=== PATIENT | female | born 2000 | race Caucasian/White ===

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

== ENCOUNTER → 2021-02-04 | Outpatient (CLI) | payer OTHER ==
[2021-02-05 08:08] LABS: TOXOPLASMA GONDII IGM <3.0 AU/mL (0.0-7.9)
== END | disposition home or self-care (01) ==
LOC: US 11:00 → LAB 11:20 → US 11:20
PROVIDERS: ATTEND Nurse Practitioner Women's Health
DX: O26.892 Other specified pregnancy related conditions, second trimester (principal); Z3A.14 14 weeks gestation of pregnancy; Z62.810 Personal history of physical and sexual abuse in childhood

== ENCOUNTER → 2021-03-14 | Outpatient (CLI) | payer OTHER | END | disposition home or self-care (01) | LOC: US 10:25 | PROVIDERS: ATTEND Obstetrics & Gynecology | DX: Z34.02 Encounter for supervision of normal first pregnancy, second trimester (principal); Z3A.19 19 weeks gestation of pregnancy ==

== ENCOUNTER → 2021-04-08 | Outpatient (CLI) | payer OTHER | END | disposition home or self-care (01) | LOC: US 10:44 | PROVIDERS: ATTEND Obstetrics & Gynecology | DX: Z34.02 Encounter for supervision of normal first pregnancy, second trimester (principal); Z3A.23 23 weeks gestation of pregnancy ==

== ENCOUNTER → 2021-05-10 | Outpatient (CLI) | payer OTHER | END | disposition home or self-care (01) | LOC: US 15:29 | PROVIDERS: ATTEND Nurse Practitioner Women's Health | DX: Z34.03 Encounter for supervision of normal first pregnancy, third trimester (principal); Z3A.28 28 weeks gestation of pregnancy ==

== ENCOUNTER 2023-02-20 16:12 | Emergency (ER) | payer OTHER ==
[~2023-02-20] VITALS: Ht 165.1 cm; Wt 58.1 kg
[2023-02-20] MEDS ORDERED: VIBRAMYCIN100 MG PO ×2 (17:01→17:03)
== END 2023-02-20 17:20 | disposition home or self-care (01) ==
LOC: ED 16:12
DX: S80.862A Insect bite (nonvenomous), left lower leg, initial encounter (principal); W57.XXXA Bitten or stung by nonvenomous insect and other nonvenomous arthropods, initial encounter; Y93.89 Activity, other specified; Y92.89 Other specified places as the place of occurrence of the external cause; Y99.8 Other external cause status